=== PATIENT | female | born 1995 | race Caucasian/White ===

== ENCOUNTER 2017-02-16 16:42 | Emergency (ER) | payer OTHER ==
[~2017-02-16] VITALS: Ht 162.6 cm; Wt 61.7 kg
[2017-02-16 17:22] VITALS: Ht 162.6 cm; Wt 61.7 kg
[2017-02-16 20:39] LABS: CALCIUM 9.1 mg/dL (8.5-10.1); CARBON DIOXIDE 24.1 mmol/L (21-32); CHLORIDE SERUM 101 mmol/L (98-107); CREATININE SERUM 1.2 mg/dL (0.6-1.0); GFR1 > 60 mL/min; GLUCOSE SERUM 117 mg/dL (74-106); POTASSIUM SERUM 3.9 mmol/L (3.5-5.1); SODIUM SERUM 137 mmol/L (136-145)
[2017-02-16 20:43] LABS: ALBUMIN 4.5 g/dL (3.4-5.0); ALKALINE PHOSPHATASE 33 U/L (46-116); ALT/SGPT 22 U/L (14-59); AST/SGOT 20 U/L (15-37); BILIRUBIN TOTAL 0.6 mg/dL (0.20-1.00); LIPASE 109 IU/L (73-393)
[2017-02-16 20:46] LABS: TOTAL PROTEIN, SERUM 8.3 g/dL (6.4-8.2)
[2017-02-16 20:48] LABS: BASOPHIL % 0.1 % (0-2); PLATELET COUNT 194 x10^3mcL (130-400); RED CELL DISTRIBUTION WIDTH 12.5 % (11.5-14.5)
[2017-02-16 22:49] VITALS: BP 107/57
== END 2017-02-16 22:49 | disposition home or self-care (01) ==
LOC: ED 16:42
PROVIDERS: Emergency Medicine
DX: N20.1 Calculus of ureter (principal); R19.7 Diarrhea, unspecified
CPT/HCPCS: 36415; J0500; J1885; Q0162